=== PATIENT | male | born 2000 | race Caucasian/White ===

== ENCOUNTER 2024-10-21 00:10 | Emergency (ER) | payer SELFPAY ==
[~2024-10-21] VITALS: Ht 215.9 cm; Wt 88.5 kg
[~2024-10-21 00:10] MED LIST: ANTIBIOTIC O500 U/GM TP; DOXYCYCLINE HY100 M3 PO; MOTRIN400 MG PO; PHENERGAN12.5 MG RC
[2024-10-21 02:11] LABS: BILIRUBIN Negative (Negative); BLOOD Negative (Negative); CLARITY Clear (Clear); COLOR Yellow (Yellow); GLUCOSE Negative (Negative); KETONE Negative (Negative); LEUKO ESTERASE Negative (Negative); NITRITE Negative (Negative); PH 7.5 (4.5-8.0); SPECIFIC GRAVITY <= 1.005 (1.001-1.030)
[2024-10-21 02:41] LABS: WBC 0-2 wbc/hpf (0-5)
== END 2024-10-21 03:05 | disposition home or self-care (01) ==
LOC: ED 00:10
PROVIDERS: Internal Medicine
DX: N20.9 Urinary calculus, unspecified (principal); J45.909 Unspecified asthma, uncomplicated; Z88.0 Allergy status to penicillin